=== PATIENT | male | born 1960 | race Hispanic/Latino ===

== ENCOUNTER 2017-07-25 17:49 | Inpatient (IN) | payer SELFPAY ==
[~2017-07-25] VITALS: Ht 152.4 cm; Wt 65.0 kg
[2017-07-25 18:18] LABS: EOSINOPHIL (%) 0.1 % (0-5); HEMATOCRIT 44.6 % (38.0-50.0); IMMATURE GRANULOCYTE (%) 2.3 % (0.0-0.7); IMMATURE GRANULOCYTE COUNT 0.3 K/uL; INSTRUMENT ABS NEUTROPHIL CT 9.7 K/uL; LYMPHOCYTE COUNT 1.6 K/uL (1.0-2.8); MCH 29.7 PG (29.0-34.0); MEAN PLAT.VOLUME 9.2 uM^3 (9.0-12.4); MONOCYTE (%) 6.5 % (3-12); MONOCYTE COUNT 0.8 K/uL (0-0.8); NEUTROPHIL (%) 78.4 % (45-76); NEUTROPHIL COUNT 9.7 K/uL (1.8-6.4); PLATELET COUNT 246 K/uL (156-360); RBC DIS.WIDTH-CV 12.2 % (11.8-14.6); RBC DIS.WIDTH-SD 37.9 % (39-53); RED BLOOD COUNT 5.25 M/uL (4.00-5.50); WHITE BLOOD COUNT 12.4 K/uL (4.1-10.2)
[2017-07-25 18:28] LABS: CHLORIDE 101 mEq/L (99-109); POTASSIUM 3.9 mEq/L (3.7-5.4); SODIUM 134 mEq/L (136-147)
[2017-07-25 18:29] LABS: MAGNESIUM 2.5 mg/dL (1.3-2.7)
[2017-07-25 18:30] LABS: GLUCOSE 118 mg/dL (70-99)
[2017-07-25 18:32] LABS: ANION GAP 13 MEQ/L (2-14); TOTAL BILIRUBIN 1.6 mg/dL (0.0-1.0)
[2017-07-25 18:34] LABS: ALKALINE PHOSPHATASE 77 IU/L (3-129)
[2017-07-25 18:35] LABS: UREA NITROGEN (BUN) 20 mg/dL (9-23)
[2017-07-25 18:38] LABS: GFR ESTIMATE (CALCULATED) > 59 mL/min/
[2017-07-25 20:28] LABS: ADD MIUA? NO; BILIRUBIN NEGATIVE; BLOOD NEGATIVE; COLOR STRAW ((YELLOW)); GLUCOSE (STRIP) NEGATIVE; KETONES NEGATIVE; LEUKOCYTES NEGATIVE; NITRITE NEGATIVE; PROTEIN (STRIP) NEGATIVE; SPECIFIC GRAVITY 1.006 (1.000-1.030); UCUL ADDED? NO; UROBILINOGEN 0.2 MG/DL (0.2-1.0)
[2017-07-25 22:43] VITALS: BP 149/89
[2017-07-26 03:45] VITALS: BP 155/86
[2017-07-26 06:36] LABS: ALKALINE PHOSPHATASE 61 IU/L (3-129); ANION GAP 7 MEQ/L (2-14); CHLORIDE 105 MEQ/L (99-109); GFR ESTIMATE (CALCULATED) > 59 mL/min/; GLUCOSE 96 mg/dL (70-99); POTASSIUM 3.6 MEQ/L (3.7-5.4); SAMPLE HEMOLYSIS CHECK 0; SAMPLE ICTERIC CHECK 0; SAMPLE LIPEMIA CHECK 0; SODIUM 138 MEQ/L (136-147); TOTAL BILIRUBIN 1.7 MG/DL (0.0-1.0); UREA NITROGEN (BUN) 17 mg/dL (9-23)
[2017-07-26 06:40] LABS: HEMATOCRIT 38.6 % (38.0-50.0); MCH 29.1 PG (29.0-34.0); MCHC 33.4 G/DL (30.0-36.0); MCV 86.9 FL (86-99); MEAN PLAT.VOLUME 9.5 uM^3 (9.0-12.4); PLATELET COUNT 207 K/uL (156-360); RBC DIS.WIDTH-CV 12.5 % (11.8-14.6); RBC DIS.WIDTH-SD 39.8 % (39-53); RED BLOOD COUNT 4.44 M/uL (4.00-5.50); WHITE BLOOD COUNT 8.8 K/uL (4.1-10.2)
[2017-07-26 11:03] VITALS: BP 156/86
[2017-07-26 15:57] VITALS: BP 130/86
[2017-07-26 20:05] VITALS: BP 155/80
[2017-07-27 00:10] VITALS: BP 133/78
[2017-07-27 04:06] VITALS: BP 133/76
[2017-07-27 06:04] LABS: EOSINOPHIL (%) 0 % (0-5); HEMATOCRIT 36.7 % (38.0-50.0); IMMATURE GRANULOCYTE (%) 0.7 % (0.0-0.7); IMMATURE GRANULOCYTE COUNT 0.1 K/uL; INSTRUMENT ABS NEUTROPHIL CT 6.3 K/uL; LYMPHOCYTE COUNT 1.1 K/uL (1.0-2.8); MCH 30.9 PG (29.0-34.0); MCHC 34.9 G/DL (30.0-36.0); MCV 88.6 FL (86-99); MEAN PLAT.VOLUME 9.8 uM^3 (9.0-12.4); MONOCYTE (%) 6.8 % (3-12); MONOCYTE COUNT 0.6 K/uL (0-0.8); NEUTROPHIL (%) 78.2 % (45-76); NEUTROPHIL COUNT 6.3 K/uL (1.8-6.4); PLATELET COUNT 165 K/uL (156-360); RBC DIS.WIDTH-CV 12.6 % (11.8-14.6); RBC DIS.WIDTH-SD 41.5 % (39-53); RED BLOOD COUNT 4.14 M/uL (4.00-5.50); WHITE BLOOD COUNT 8.1 K/uL (4.1-10.2)
[2017-07-27 06:31] LABS: ALKALINE PHOSPHATASE 64 IU/L (3-129); ANION GAP 6 MEQ/L (2-14); CHLORIDE 110 MEQ/L (99-109); GFR ESTIMATE (CALCULATED) > 59 mL/min/; GLUCOSE 118 mg/dL (70-99); POTASSIUM 3.7 MEQ/L (3.7-5.4); SAMPLE HEMOLYSIS CHECK 0; SAMPLE ICTERIC CHECK 0; SAMPLE LIPEMIA CHECK 0; SODIUM 141 MEQ/L (136-147); TOTAL BILIRUBIN 0.6 MG/DL (0.0-1.0); UREA NITROGEN (BUN) 19 mg/dL (9-23)
[2017-07-27 08:00] VITALS: BP 161/87
[2017-07-27] MEDS ORDERED: THERAGRAN1 TABLET PO (13:06)
[2017-07-27] MEDS ORDERED: FOLIC ACID1 MG PO (13:07)
[2017-07-27] MEDS ORDERED: Thiamine,Vitamin B1 PO (13:07)
[2017-07-27] MEDS ORDERED: METOPROLOL TART25 MG PO (13:07)
[2017-07-27] MEDS ORDERED: Lidoderm 5% Patch TD (13:07)
== END 2017-07-27 17:55 | disposition home or self-care (01) | DRG 897 ==
LOC: EME 17:49 → EDOF 22:01 → 5EAST 22:01 → ENRESERV 22:10 → 5EAST 23:56 → EDPENDDISTM 07-27 → ENPENDDIS 07-27 13:09 → 5EAST 07-27 17:55
PROVIDERS: Emergency Medicine; Hospitalist
DX: F10.239 Alcohol dependence with withdrawal, unspecified (principal); G40.409 Other generalized epilepsy and epileptic syndromes, not intractable, without status epilepticus; E87.1 Hypo-osmolality and hyponatremia; K70.10 Alcoholic hepatitis without ascites; S01.512A Laceration without foreign body of oral cavity, initial encounter; I10 Essential (primary) hypertension; R32 Unspecified urinary incontinence
CPT/HCPCS: 70450; 71010; 76705; 80053; 81003; 83735; 85025; 85027; 90686; 93005; 95819; 99281; 99285; J1885; J3411; J7030